=== PATIENT | male | born 1990 | race Caucasian/White ===

== ENCOUNTER 2018-04-21 21:30 | Emergency (ER) | payer SELFPAY ==
[~2018-04-21] VITALS: Ht 167.6 cm; Wt 73.9 kg
[2018-04-21 22:03] VITALS: Ht 167.6 cm; Wt 73.9 kg
[2018-04-21 22:50] VITALS: BP 118/51
== END 2018-04-21 22:50 | disposition home or self-care (01) ==
LOC: ED 21:30
DX: S90.31XA Contusion of right foot, initial encounter (principal); Z98.890 Other specified postprocedural states; W22.8XXA Striking against or struck by other objects, initial encounter; Y93.89 Activity, other specified; Y92.89 Other specified places as the place of occurrence of the external cause; Y99.8 Other external cause status
CPT/HCPCS: J1885